=== PATIENT | male | born 1975 ===

== ENCOUNTER 2017-12-21 20:00 | Emergency (ER) | payer BC, OTHER ==
[2017-12-21] MEDS ORDERED: Rabies Vaccine Human 2.5 UNITS VIAL IM ONE (22:00)
[2017-12-21] MEDS ORDERED: Bacitracin Zinc 1 Packet ONE (22:33)
== END 2017-12-21 23:18 | disposition home or self-care (01) ==
LOC: ERS 20:00
DX: S81.832A Puncture wound without foreign body, left lower leg, initial encounter (principal); S81.831A Puncture wound without foreign body, right lower leg, initial encounter; F41.9 Anxiety disorder, unspecified; F32.9 Major depressive disorder, single episode, unspecified; W54.0XXA Bitten by dog, initial encounter
CPT/HCPCS: 90375; 90471; 90675; 96372

== ENCOUNTER → 2017-12-24 | Day surgery (SDC) | payer OTHER ==
[~2017-12-24] MED LIST: Rabies Vaccine Human 2.5 UNITS VIAL IM ONE
== END ==
LOC: ERS 08:18
PROVIDERS: ATTEND Emergency Medicine
DX: Z23 Encounter for immunization (principal)
CPT/HCPCS: 90471; 90675

== ENCOUNTER → 2017-12-31 | Day surgery (SDC) | payer OTHER | LOC: ER/OP 08:22 | PROVIDERS: ATTEND Emergency Medicine | DX: Z23 Encounter for immunization (principal); Z20.3 Contact with and (suspected) exposure to rabies | CPT/HCPCS: 90471; 90675 ==

== ENCOUNTER → 2018-01-14 | Day surgery (SDC) | payer OTHER | LOC: ER/OP 14:40 → ERS 14:40 → EDSTATUS 15:43 | PROVIDERS: ATTEND Emergency Medicine | DX: Z23 Encounter for immunization (principal) | CPT/HCPCS: 90471; 90675 ==